=== PATIENT | female | born 2000 | race Caucasian/White ===

== ENCOUNTER 2021-12-19 19:08 | Emergency (ER) | payer OTHER ==
[~2021-12-19] VITALS: Ht 162.6 cm; Wt 88.3 kg
[~2021-12-19 19:08] MED LIST: IBUPROFEN600 MG PO
[2021-12-19] MEDS ORDERED: BUPROPION HCL150 M2 PO (23:13)
[2021-12-20] MEDS ORDERED: HYDROCODON-ACE1 EA10 PO (01:19)
== END 2021-12-20 01:37 | disposition home or self-care (01) ==
LOC: ED 19:08
DX: M79.89 Other specified soft tissue disorders (principal)
CPT/HCPCS: 93931; 99283-25; A9270